=== PATIENT | female | born 1980 | race Caucasian/White ===

== ENCOUNTER 2020-07-03 08:57 | Inpatient (IN) | payer MEDICAID ==
[2020-06-22 16:34] LABS: BASOPHILS # (AUTO) 0.1 X10'3 (0-0.2); BASOPHILS % (AUTO) 0.5 % (0-1); EOSINOPHILS # (AUTO) 0.3 X10'3 (0-0.9); LYMPHOCYTES % (AUTO) 27.7 % (21-51); MEAN CORPUSCULAR HEMOGLOBIN 30.1 PG (27.0-31.0); MEAN CORPUSCULAR HGB CONC 33.4 g/dL (33.0-36.5); MEAN CORPUSCULAR VOLUME 90.1 FL (78-98); MEAN PLATELET VOLUME 7.3 FL (7.4-10.4); MONOCYTES # (AUTO) 0.6 X10'3 (0-0.9); MONOCYTES % (AUTO) 5.3 % (2-12); NEUTROPHILS # (AUTO) 6.8 X10'3 (1.8-7.7); NEUTROPHILS % (AUTO) 63.5 % (42-75); PRE OP HEMATOCRIT 42.8 % (35.0-45.0); PRE OP HEMOGLOBIN 14.3 g/dL (12.0-16.0); PRE OP PLATELET COUNT 380 X10'3 (140-440); RED BLOOD COUNT 4.75 X10'6 (4.20-5.60); RED CELL DISTRIBUTION WIDTH 13.4 % (11.5-14.5)
[2020-06-22 16:35] LABS: CLARITY,URINE SLIGHTLY CLOUDY (Clear); COLOR,URINE YELLOW (Yellow); GLUCOSE, URINE NEGATIVE (Neg); KETONES,URINE NEGATIVE (Neg); LEUKOCYTE ESTERASE ,URINE NEGATIVE (Neg); NITRITES, URINE NEGATIVE (Neg); OCCULT BLOOD,URINE NEGATIVE (Neg); PH,URINE 5.5 (4.8-8.0); PROTEIN,URINE NEGATIVE (Neg); UROBILINOGEN,URINE 0.2 E.U/dL (0.2-1.0)
[2020-06-22 16:38] LABS: UA COLLECTION TYPE CLN CATCH MIDSTREAM
[2020-06-22 16:43] LABS: MUCUS STRANDS MANY /LPF (Neg); SQUAMOUS EPITHELIAL CELL,UR MODERATE /LPF (FEW)
[2020-06-22 16:44] LABS: TRANSITIONAL EPI CELLS,URINE FEW /HPF
[2020-06-22 16:45] LABS: BACTERIA,URINE FEW /HPF (Neg); RBC,URINE 0-2 /HPF (0-2); WBC,URINE 0-4 /HPF (0-4)
[2020-06-22 16:54] LABS: ALBUMIN 3.7 G/DL (3.4-5.0); ALBUMIN/GLOBULIN RATIO 0.9 (1.1-1.5); ALKALINE PHOSPHATASE 80 IU/L (46-116); BLOOD UREA NITROGEN 24 MG/DL (7-18); BUN/CREATININE RATIO 26.7 (6.6-38.0); CALCIUM 9.1 MG/DL (8.5-10.1); CHLORIDE 104 MMOL/L (99-107); PRE OP ALT 37 U/L (30-65); PRE OP ANION GAP 13 (8-16); PRE OP AST 24 U/L (10-37); PRE OP BILIRUB, TOTAL 1.2 MG/DL (0.0-1.0); PRE OP GLUCOSE 113 MG/DL (70-104); PRE OP POTASSIUM 3.9 MMOL/L (3.4-5.1); PRE OP SODIUM 141 MMOL/L (135-145); TOTAL CARBON DIOXIDE 23.9 MMOL/L (24-32); TOTAL PROTEIN 7.8 G/DL (6.4-8.2); eGFR 69 ML/MIN
[2020-06-22 16:57] LABS: HCG SERUM QL NEGATIVE
[2020-07-03] VITALS (19 sets, daily range): BP systolic 117–157; BP diastolic 72–99
[~2020-07-03] VITALS: Ht 167.6 cm; Wt 110.0 kg
[~2020-07-03 08:57] MED LIST: MESSAGE TO NURSING IV ONE; MULT-1085 PO; NAPR220C15 PO; VITAMIN D3 PO; cefazolin/dext.iso 2gm/100ml 100 ML IV ONE; famotidine 20mg tablet PO ONE; ringers solution, lacted 1,000 ML IV SCH; vancomycin 1,500 MG in NS 300ml IV soln IV ONE
[2020-07-03] MEDS ORDERED: fentaNYL/PF 50MCG/1 ML 2ML syringe ONE ×2 (10:55→12:23)
[2020-07-03] MEDS ORDERED: midazolam 1 mg/ML 2ml injection ONE (10:56)
[2020-07-03] MEDS ORDERED: ROPIVAcaine 0.5% (5mg/ml) 30ml vial ONE ×2 (11:01→12:54)
[2020-07-03] MEDS ORDERED: sevoflurane 250ml liquid IH ONE (11:44)
[2020-07-03] MEDS ORDERED: bacitracin 15gm ointment TP ONE (12:41)
[2020-07-03] MEDS ORDERED: LIDOcaine 2% (20mg/ml) 5ml vial ONE (12:54)
[2020-07-03] MEDS ORDERED: propofol inj 20 ML IV ONE (12:54)
[2020-07-03] MEDS ORDERED: rocuronium 10mg/ml inj IV ONE (12:54)
[2020-07-03] MEDS ORDERED: dexamethasone sod phosphate 4mg/ml inj. ONE (12:54)
[2020-07-03] MEDS ORDERED: acetaminophen 1,000mg/100ml IV 100 ML IV ONE (13:36)
[2020-07-03] MEDS ORDERED: morphine 4 MG/ML inj SYRINge IV PRN (14:15)
[2020-07-03] MEDS ORDERED: meperidine/PF 25mg/ml syringe IV PRN ×2 (14:15)
[2020-07-03] MEDS ORDERED: ROPIVAcaine 0.2%/PF PUMP/bolus 545 ML POPLITEAL SCH (14:15)
[2020-07-03] MEDS ORDERED: ringers solution, lacted 1,000 ML IV SCH (14:15)
[2020-07-03] MEDS ORDERED: ondansetron/PF 4mg/2ml inj IV PRN ×2 (14:15→15:55)
[2020-07-03] MEDS ORDERED: morphine 2 MG/ML inj. syringe IV PRN (14:15)
[2020-07-03] MEDS ORDERED: proCHLORperazine 10 MG/2 ml inj IV PRN (14:15)
[2020-07-03] MEDS ORDERED: ROPIVAcaine 0.2% (10 MG/5 ML) BOLUS INJECTION POPLITEAL PRN (14:15)
[2020-07-03] MEDS ORDERED: meperidine/PF 25mg/ml syringe ONE (14:55)
[2020-07-03] MEDS ORDERED: neostigmine methylsulfate 1 MG/ML 10ml vial ONE (14:56)
[2020-07-03] MEDS ORDERED: glycopyrrolate 0.2mg/ml inj ONE (14:56)
[2020-07-03] MEDS ORDERED: ondansetron/PF 4mg/2ml inj ONE (14:56)
[2020-07-03] MEDS ORDERED: mag hydrox/Alum hydrox/simeth 30ml oral suspension PO PRN (15:55)
[2020-07-03] MEDS ORDERED: acetaminophen 325mg tablet PO PRN (15:55)
[2020-07-03] MEDS ORDERED: HYDROcodone/acetaminophen 10/325mg tab PO PRN (15:55)
[2020-07-03] MEDS ORDERED: magnesium hydroxide 30ml (MOM) UD suspension PO PRN (15:55)
[2020-07-03] MEDS ORDERED: HYDROcodone/acetaminophen 5mg/325mg tablet PO PRN (15:55)
[2020-07-03] MEDS ORDERED: diphenhydrAMINE 25mg capsule PO PRN (15:55)
--- NOTE | 2020-07-03 16:04 | NUR ---
Received from OR via BED, accompanied by Anesthesiologist DR STEINBERG and report given by Anesthesiologist. PT W/ETT VERY DROWSY, NO S/S OF DISTRESS/DISCOMFORT. VSS. RIGHT FOOT TO BELOW KNEE W/SPLINT/DRSG CDI. TOES PWD, FOOD ANALYST 1-2 SECONDS. PT EXTUBATED BY DR STEINBERG SHORTLY AFTER ARRIVAL, TOLERATED WELL. Addendum: 07/03/20 at 1645 by Michelle Dowling RN Amended: Links added.
[2020-07-03] MEDS: meperidine/PF 25mg/ml syringe IV PRN ×2 (16:25→16:47)
--- NOTE | 2020-07-03 17:15 | NUR ---
Report received from ASSISTANT OPERATIONS MANAGERMichelle
--- NOTE | 2020-07-03 17:44 | NUR ---
Report called to receiving nurse. PT STATES PAIN IMPROVING. Transferred via BED W/ 1 W/C, 1 DUFFLE BAG AND 1 Belongings BAG TO ROOM 4023A. RECEIVING RN AT BEDSIDE TO RECIEVE PT. Special Issues communicated to receiving nurse. YES. Addendum: 07/03/20 at 1757 by Michelle Dowling RN Amended: Links added.
--- NOTE | 2020-07-03 18:40 | NUR ---
Problems reprioritized. Patient report given, questions answered & plan of care reviewed with DELORES Machuca.
--- NOTE | 2020-07-03 21:01 | NUR ---
Spouse came and brought her brace for the left wrist for carpal tunnel from home and he applied it to her wrist at this time.
[2020-07-04] MEDS: morphine 2 MG/ML inj. syringe IV PRN ×4 (00:05→16:18)
--- NOTE | 2020-07-04 00:48 | NUR ---
pt still has numbness to right leg. unable to wiggle toes. pink and warm. pulse intact.
[2020-07-04] MEDS: ceFAZolin/D5W- 1GM premix 50 ML IV SCH ×2 (01:38→07:48)
--- NOTE | 2020-07-04 05:30 | NUR ---
pt able to wiggle toe, can feel cold through cast. noted pt feels that cast has "slipped" down and foot is at strange angle. will have day RN call director of orthopedics and report to supercharger mechanic. CSM intact.
[2020-07-04 06:00] VITALS: BP 93/56
--- NOTE | 2020-07-04 06:41 | NUR ---
Patient in room [facility]TH[facility] 4023. I have received report from VIPUL ESTRELLA and had the opportunity to ask questions and assume patient care.
[2020-07-04 09:40] LABS: BASOPHILS % (AUTO) 0 % (0-1); EOSINOPHILS % (AUTO) 0 % (0-6); HEMATOCRIT 37.1 % (35.0-45.0); HEMOGLOBIN 12.5 g/dl (12.0-16.0); LYMPHOCYTES # (AUTO) 1.2 X10'3 (1.1-4.8); LYMPHOCYTES % (AUTO) 6.7 % (21-51); MEAN CORPUSCULAR HEMOGLOBIN 30.8 PG (27.0-31.0); MEAN CORPUSCULAR HGB CONC 33.7 g/dL (33.0-36.5); MEAN CORPUSCULAR VOLUME 91.3 FL (78-98); MEAN PLATELET VOLUME 7.7 FL (7.4-10.4); MONOCYTES % (AUTO) 5.5 % (2-12); NEUTROPHILS # (AUTO) 15.4 X10'3 (1.8-7.7); NEUTROPHILS % (AUTO) 87.8 % (42-75); PLATELET COUNT 303 X10'3 (140-440); RED BLOOD COUNT 4.06 X10'6 (4.20-5.60); RED CELL DISTRIBUTION WIDTH 13.5 % (11.5-14.5); WHITE BLOOD COUNT 17.6 X10'3 (4.5-11.0)
[2020-07-04 10:03] LABS: ALANINE AMINOTRANSFERASE 25 U/L (12-78); ALBUMIN 2.8 G/DL (3.4-5.0); ALBUMIN/GLOBULIN RATIO 0.8 (1.1-1.5); ALKALINE PHOSPHATASE 63 IU/L (46-116); ANION GAP 10 (8-16); ASPARTATE AMINO TRANSFERASE 14 U/L (10-37); BILIRUBIN,TOTAL 0.5 MG/DL (0.1-1.0); BLOOD UREA NITROGEN 11 MG/DL (7-18); BUN/CREATININE RATIO 11.3 (6.6-38.0); CALCIUM 8.3 MG/DL (8.5-10.1); CHLORIDE 106 MMOL/L (99-107); CREATININE 0.97 MG/DL (0.40-0.90); GLUCOSE 160 MG/DL (70-104); POTASSIUM 4.1 MMOL/L (3.5-5.1); SODIUM 139 MMOL/L (135-145); TOTAL CARBON DIOXIDE 23.1 MMOL/L (24-32); TOTAL PROTEIN 6.1 G/DL (6.4-8.2); eGFR 64 ML/MIN
[2020-07-04 14:00] VITALS: BP 91/46
[2020-07-04 18:00] VITALS: BP 95/54
--- NOTE | 2020-07-04 18:41 | NUR ---
PT DISCHARGED IN STABLE CONDITION. LEFT FACILITY IN PRIVATE VEHICLE WITH . IV DC CANULA INTACT. ON Q BALL ON PT. ALL BELONGINGS IN HAND INCLUDING WHEELCHAIR. FOLLOW UP INSTRUCTIONS GIVEN, ALL QUESTIONS ANSWERED. Addendum: 07/04/20 at 1842 by Vero You RN Amended: Links added.
== END 2020-07-04 18:30 | disposition home or self-care (01) | DRG 313 ==
LOC: PAS 08:57 → EDSTATUS 13:15 → ORTHO 4S 15:54 → UNDOADMIN 17:49
PROVIDERS: ADMIT Podiatrist Foot & Ankle Surgery; ATTEND Podiatrist Foot & Ankle Surgery
PROC: 0SPF04Z Removal of Internal Fixation Device from Right Ankle Joint, Open Approach (ICD-10-PCS; 2020-07-03)
PROC: 0SHF04Z Insertion of Internal Fixation Device into Right Ankle Joint, Open Approach (ICD-10-PCS; 2020-07-03)
PROC: 3E0T3BZ Introduction of Anesthetic Agent into Peripheral Nerves and Plexi, Percutaneous Approach (ICD-10-PCS; 2020-07-03)
PROC: 3E0T33Z Introduction of Anti-inflammatory into Peripheral Nerves and Plexi, Percutaneous Approach (ICD-10-PCS; 2020-07-03)
PROC: 0SRF0J9 Replacement of Right Ankle Joint with Synthetic Substitute, Cemented, Open Approach (ICD-10-PCS; principal; 2020-07-03 11:44)
DX: T84.84XA Pain due to internal orthopedic prosthetic devices, implants and grafts, initial encounter (principal); D72.823 Leukemoid reaction; G43.909 Migraine, unspecified, not intractable, without status migrainosus; M19.071 Primary osteoarthritis, right ankle and foot; M25.471 Effusion, right ankle; G56.03 Carpal tunnel syndrome, bilateral upper limbs; F17.210 Nicotine dependence, cigarettes, uncomplicated; Y83.1 Surgical operation with implant of artificial internal device as the cause of abnormal reaction of the patient, or of later complication, without mention of misadventure at the time of the procedure; Y92.89 Other specified places as the place of occurrence of the external cause; Z83.3 Family history of diabetes mellitus; Z98.1 Arthrodesis status; Z88.1 Allergy status to other antibiotic agents; Z79.899 Other long term (current) drug therapy; Z71.6 Tobacco abuse counseling
CPT/HCPCS: 36415; 73620; 76000; 80053; 81001; 82948; 84703; 85025; 87081; 97116; 97161; 97530; A4618; A6223; A6253; A6449; A7000; C1713; C1776; G0378; J0131; J0690; J1100; J2001; J2175; J2250; J2270; J2405; J2704; J2710; J2795; J3010; J3370; J3490; J7040; J7120; Q0163; U0003; U0005

== ENCOUNTER 2023-04-05 13:47 | Outpatient (CLI) | payer BC ==
[~2023-04-05 13:47] MED LIST changes: -MESSAGE TO NURSING IV ONE; -NAPR220C15 PO; -cefazolin/dext.iso 2gm/100ml 100 ML IV ONE; -famotidine 20mg tablet PO ONE; -ringers solution, lacted 1,000 ML IV SCH; -vancomycin 1,500 MG in NS 300ml IV soln IV ONE
== END 2023-04-05 23:59 | disposition home or self-care (01) ==
LOC: RAD 13:47
PROVIDERS: ATTEND Podiatrist Foot & Ankle Surgery
DX: M19.071 Primary osteoarthritis, right ankle and foot (principal); M25.471 Effusion, right ankle; M25.571 Pain in right ankle and joints of right foot; M79.671 Pain in right foot; M79.89 Other specified soft tissue disorders; Z98.890 Other specified postprocedural states; Z72.0 Tobacco use
CPT/HCPCS: 73700

== ENCOUNTER 2023-07-21 07:51 | Observation (INO) | payer BC ==
[2023-07-14 16:19] LABS: BASOPHILS # (AUTO) 0.1 X10'3 (0-0.2); EOSINOPHILS # (AUTO) 0.4 X10'3 (0-0.9); EOSINOPHILS % (AUTO) 4.4 % (0-6); LYMPHOCYTES # (AUTO) 2.5 X10'3 (1.1-4.8); LYMPHOCYTES % (AUTO) 30.6 % (21-51); MEAN CORPUSCULAR HEMOGLOBIN 31.4 PG (27.0-31.0); MEAN CORPUSCULAR HGB CONC 33.9 g/dL (33.0-36.5); MEAN CORPUSCULAR VOLUME 92.7 FL (78-98); MEAN PLATELET VOLUME 7.1 FL (7.4-10.4); MONOCYTES # (AUTO) 0.7 X10'3 (0-0.9); MONOCYTES % (AUTO) 7.8 % (2-12); NEUTROPHILS # (AUTO) 4.7 X10'3 (1.8-7.7); NEUTROPHILS % (AUTO) 56.2 % (42-75); PRE OP HEMATOCRIT 45.2 % (35.0-45.0); PRE OP HEMOGLOBIN 15.3 g/dL (12.0-16.0); PRE OP PLATELET COUNT 350 X10'3 (140-440); PRE OP WHITE BLOOD COUNT 8.3 10'3 (4.8-10.8); RED BLOOD COUNT 4.87 X10'6 (4.20-5.60); RED CELL DISTRIBUTION WIDTH 13.8 % (11.5-14.5)
[2023-07-14 16:27] LABS: BILIRUBIN,URINE NEGATIVE (Neg); COLOR,URINE YELLOW (Yellow); GLUCOSE, URINE NEGATIVE (Neg); KETONES,URINE NEGATIVE (Neg); LEUKOCYTE ESTERASE ,URINE NEGATIVE (Neg); NITRITES, URINE NEGATIVE (Neg); OCCULT BLOOD,URINE NEGATIVE (Neg); PH,URINE 5.5 (4.8-8.0); PROTEIN,URINE NEGATIVE (Neg); UROBILINOGEN,URINE 0.2 E.U/dL (0.2-1.0)
[2023-07-14 16:28] LABS: ALKALINE PHOSPHATASE 75 IU/L (46-116); BLOOD UREA NITROGEN 13 MG/DL (7-18); BUN/CREATININE RATIO 15.9 (10.0-20.0); CALCIUM 9.1 MG/DL (8.5-10.1); CHLORIDE 103 MMOL/L (99-107); CREATININE 0.82 MG/DL (0.40-0.90); PRE OP ALT 30 U/L (30-65); PRE OP ANION GAP 7 (8-16); PRE OP AST 15 U/L (10-37); PRE OP BILIRUB, TOTAL 0.5 MG/DL (0.0-1.0); PRE OP GLUCOSE 85 MG/DL (70-104); PRE OP POTASSIUM 4.3 MMOL/L (3.4-5.1); PRE OP SODIUM 137 MMOL/L (135-145); TOTAL CARBON DIOXIDE 26.9 MMOL/L (24-32); eGFR 76 ML/MIN
[2023-07-14 16:39] LABS: BACTERIA,URINE FEW /HPF (Neg); CLARITY,URINE SLIGHTLY CLOUDY (Clear); MUCUS STRANDS MANY /LPF (Neg); RBC,URINE 0-2 /HPF (0-2); SQUAMOUS EPITHELIAL CELL,UR MANY /LPF (FEW); UA COLLECTION TYPE NON-SPECIFIED; WBC,URINE 0-4 /HPF (0-4)
[2023-07-21] VITALS (19 sets, daily range): BP systolic 103–129; BP diastolic 64–81; PULSE 83–99; RESP 16–20; TEMP 97.7–98.5; O2SAT 97–100
[~2023-07-21] VITALS: Ht 167.6 cm; Wt 111.4 kg
[~2023-07-21 07:51] MED LIST changes: +CEPH-585 PO; +PRE PO; +PROBIOTICS PO; -VITAMIN D3 PO
[2023-07-21] MEDS: ringers solution, lacted 1,000 ML IV SCH (08:23)
[2023-07-21] MEDS: famotidine 20mg tablet PO ONE (08:23)
[2023-07-21] MEDS ORDERED: bacitracin 15gm ointment TP ONE (09:48)
[2023-07-21] MEDS ORDERED: BUPIVAcaine 2.5mg/ml inj 50ml vial (contains preservative) ONE (09:49)
[2023-07-21] MEDS ORDERED: MIDAZolam 1 MG/ML 5ML VIAL ONE (10:02)
[2023-07-21] MEDS ORDERED: fentaNYL/PF 50MCG/1 ML 2ML syringe ONE ×2 (10:02→10:59)
[2023-07-21] MEDS ORDERED: ROPIVAcaine 0.5% (5mg/ml) 30ml vial ONE (10:03)
[2023-07-21] MEDS ORDERED: BUPIVAcaine/PF 7.5mg/ml (0.75%) 10ml vial ONE (10:03)
[2023-07-21] MEDS ORDERED: propofol inj 20 ML IV ONE (10:04)
[2023-07-21] MEDS ORDERED: LIDOcaine 1%/PF 5ML 10 MG/ML VIAL ONE (10:04)
[2023-07-21] MEDS ORDERED: sevoflurane 250ml liquid IH ONE (10:08)
[2023-07-21] MEDS: VANCOMYCIN 1,500MG in NS 300ml IVPB IV ONE (11:00)
[2023-07-21] MEDS: piperacillin/tazo 4.5gm/100ml IVPB IV ONE (11:00)
[2023-07-21] MEDS: vancomycin 1,000mg inj ONE (12:08)
[2023-07-21] MEDS ORDERED: magnesium hydroxide 30ml (MOM) UD suspension PO PRN (12:35)
[2023-07-21] MEDS ORDERED: acetaminophen 325mg tablet PO PRN (12:35)
[2023-07-21] MEDS ORDERED: bisacodyl 10mg suppository rectal RC PRN (12:35)
[2023-07-21] MEDS ORDERED: naloxone 0.4 mg/ml inj IV PRN (12:35)
[2023-07-21] MEDS ORDERED: diphenhydrAMINE 25mg capsule PO PRN ×2 (12:35)
[2023-07-21] MEDS ORDERED: ondansetron/PF 4mg/2ml inj ONE (12:37)
[2023-07-21] MEDS ORDERED: acetaminophen 1,000mg/100ml IV 100 ML IV ONE (12:43)
[2023-07-21] MEDS: ceFAZolin/D5W- 1GM premix 50 ML IV SCH (17:06)
[2023-07-21] MEDS: lactobacillus rhamnosus 10,000 MMU CELLS/CAPSULE PO SCH (20:17)
[2023-07-21] MEDS: sennosides 8.6mg tablet PO SCH (20:21)
[2023-07-21] MEDS ORDERED: HYDROcodone/acetaminophen 10/325mg tab PO PRN (20:35)
[2023-07-21] MEDS: traMADol 50MG tablet PO PRN (21:39)
[2023-07-21] MEDS: VANCOMYCIN 1,500MG inj. 1,500 MG in normal saline 500ml IV soln 300 ML IV SCH (21:46)
[2023-07-22 02:00] VITALS: BP 108/64; PULSE 93; RESP 18; TEMP 97.9; O2SAT 96
[2023-07-22] MEDS ORDERED: piperacillin/tazo 4.5gm/100ml 100 ML IV SCH (02:00)
[2023-07-22 07:09] VITALS: BP 102/56; PULSE 94; RESP 18; TEMP 98.1; O2SAT 98
[2023-07-22 07:14] LABS: BASOPHILS % (AUTO) 0.1 % (0-1); EOSINOPHILS % (AUTO) 0 % (0-6); HEMATOCRIT 38.9 % (35.0-45.0); HEMOGLOBIN 12.9 g/dl (12.0-16.0); LYMPHOCYTES % (AUTO) 4.6 % (21-51); MEAN CORPUSCULAR HEMOGLOBIN 30.8 PG (27.0-31.0); MEAN CORPUSCULAR HGB CONC 33.1 g/dL (33.0-36.5); MEAN CORPUSCULAR VOLUME 92.9 FL (78-98); MONOCYTES # (AUTO) 0.9 X10'3 (0-0.9); MONOCYTES % (AUTO) 4.4 % (2-12); NEUTROPHILS # (AUTO) 18.9 X10'3 (1.8-7.7); NEUTROPHILS % (AUTO) 90.9 % (42-75); PLATELET COUNT 306 X10'3 (140-440); RED BLOOD COUNT 4.19 X10'6 (4.20-5.60); RED CELL DISTRIBUTION WIDTH 13.7 % (11.5-14.5); WHITE BLOOD COUNT 20.8 X10'3 (4.5-11.0)
[2023-07-22 07:42] LABS: ANION GAP 8 (8-16); CHLORIDE 103 MMOL/L (99-107); POTASSIUM 4.3 MMOL/L (3.5-5.1); SODIUM 134 MMOL/L (135-145); TOTAL CARBON DIOXIDE 23.4 MMOL/L (24-32)
[2023-07-22 08:28] LABS: ALANINE AMINOTRANSFERASE 46 U/L (12-78); ALBUMIN 2.7 G/DL (3.4-5.0); ALBUMIN/GLOBULIN RATIO 0.8 (1.1-1.5); ALKALINE PHOSPHATASE 52 IU/L (46-116); ASPARTATE AMINO TRANSFERASE 44 U/L (10-37); BILIRUBIN,TOTAL 0.7 MG/DL (0.1-1.0); BLOOD UREA NITROGEN 15 MG/DL (7-18); BUN/CREATININE RATIO 20.8 (10.0-20.0); CREATININE 0.72 MG/DL (0.40-0.90); GLUCOSE 131 MG/DL (70-104); TOTAL PROTEIN 6.2 G/DL (6.4-8.2); eCRCL 94 ML/MIN; eGFR 88 ML/MIN
[2023-07-22] MEDS: multivitamins, therapeutics tablet PO SCH (08:59)
[2023-07-22] MEDS: piperacillin/tazo 4.5gm/100ml 100 ML IV SCH (08:59)
[2023-07-22 09:00] VITALS: RESP 18; O2SAT 97
[2023-07-22 10:10] VITALS: BP 111/64; PULSE 96; RESP 16; TEMP 97.7; O2SAT 96
[2023-07-22] MEDS: CefTRIAXone 2gm/D5W 50ml BAG 50 ML IV ONE (12:17)
[2023-07-22 14:00] VITALS: BP 105/61; PULSE 98; RESP 16; TEMP 99.1; O2SAT 97
[2023-07-22] MEDS: vancomycin/NS 1 GM ADD-VANTAGE 250 ML IV SCH (17:18)
[2023-07-22] MEDS: celeCOXIB 100mg capsule PO SCH (19:18)
[2023-07-22 19:19] VITALS: RESP 15
[2023-07-23] MEDS ORDERED: CefTRIAXone 2gm/D5W 50ml BAG 50 ML IV SCH (08:00)
[2023-07-23] MEDS ORDERED: VANCOMYCIN LEVEL IV ONE (16:30)
== END 2023-07-22 19:40 | disposition home or self-care (01) ==
LOC: PAS 07:51 → PAS IN 12:39 → ORTHO 4S 14:30
PROVIDERS: ADMIT Podiatrist Foot & Ankle Surgery; ATTEND Podiatrist Foot & Ankle Surgery
DX: T84.59XA Infection and inflammatory reaction due to other internal joint prosthesis, initial encounter (principal); M19.071 Primary osteoarthritis, right ankle and foot; G43.909 Migraine, unspecified, not intractable, without status migrainosus; D72.829 Elevated white blood cell count, unspecified; K21.9 Gastro-esophageal reflux disease without esophagitis; E66.9 Obesity, unspecified; F17.210 Nicotine dependence, cigarettes, uncomplicated; Z96.661 Presence of right artificial ankle joint; Z88.1 Allergy status to other antibiotic agents; Z79.899 Other long term (current) drug therapy; Y83.1 Surgical operation with implant of artificial internal device as the cause of abnormal reaction of the patient, or of later complication, without mention of misadventure at the time of the procedure
CPT/HCPCS: 20680; 20704; 27703; 36415; 36569; 73600; 76942; 80053; 81001; 82948; 83605; 84145; 85025; 87040; 87070; 87075; 93005; 96365; 96366; 96367; 96368; A6223; C1713; G0378; J0131; J0690; J0696; J1100; J2250; J2405; J2543; J2704; J2795; J3010; J3370; J3490; J7040; J7120; 76000; A4618; A6253; A6449; A7000; C1751

== ENCOUNTER 2024-02-29 16:05 | Outpatient (CLI) | payer BC ==
[~2024-02-29 16:05] MED LIST changes: -CEPH-585 PO
== END 2024-02-29 23:59 | disposition home or self-care (01) ==
LOC: RAD 16:05
PROVIDERS: ATTEND Podiatrist Foot & Ankle Surgery
DX: M19.071 Primary osteoarthritis, right ankle and foot (principal); M25.471 Effusion, right ankle; M79.671 Pain in right foot; M25.571 Pain in right ankle and joints of right foot; Z72.0 Tobacco use
CPT/HCPCS: 73700